=== PATIENT | male | born 1970 | race American Indian/Alaskan Native ===

== ENCOUNTER 2018-02-24 05:07 | Emergency (ER) | payer SELFPAY ==
--- NOTE | 2018-02-24 07:43 | Emergency Department Report ---
Upper Extremity - HPI Chief Complaint: Extremity Injury, Upper Stated Complaint: LT HAND THIRD FINGER LAC Time Seen by Provider: 02/24/18 07:15 Upper Extremity: Left Middle Finger (injured left middle finger at work yesterday.) Occurred When: 1 Day Mechanism: Hit with Object Symptoms: Yes Pain with Movement (left middle finger), Yes Swelling, Yes Bruising/Ecchymosis (left middle finger), Yes Laceration or Abrasion (left middle finger dorsal aspect), No Deformity, No Limited Range of Movement, No Numbness, No Weakness Other History: This is a 47-year-old male he reports that he injured his left middle finger on pipes yesterday at work. He is reporting pain in the 10 and throbbing. No medication taken recently. A Band-Aid over it and he has bruises and cuts on the finger last tetanus shot was in 2014. Denies any medical problem. Pain is achy and worse with movement and better with rest ED Review of Systems ROS: Stated complaint: LT HAND THIRD FINGER LAC Other details as noted in HPI Constitutional: denies: chills, fever Eyes: vision change Respiratory: denies: cough, shortness of breath, wheezing Cardiovascular: denies: chest pain, palpitations Gastrointestinal: denies: nausea, vomiting Musculoskeletal: arthralgia (left middle finger). denies: back pain Skin: other (abrasion to left middle finger and ecchymosis). denies: rash, lesions Neurological: denies: headache, weakness, numbness, paresthesias ED Past Medical Hx - Past Medical History Previous Medical History?: No - Surgical History Past Surgical History?: No - Family History Family history: hypertension - Social History Smoking Status: Current Every Day Smoker Substance Use Type: Alcohol - Medications Home Medications: Home Medications Medication Instructions Recorded Confirmed Last Taken Type Ibuprofen [Motrin] 600 mg PO Q8H PRN #12 tablet 02/24/18 Unknown Rx cephALEXin [Keflex] 500 mg PO Q8HR 7 Days #21 cap 02/24/18 Unknown Rx Upper Extremity Exam - Exam General: Vital signs noted. No distress. Alert and acting appropriately. This is a 47-year-old male Head and Torso: No HEENT Abnormality, No Neck Tenderness, No Chest/Lungs Abnormality, No Abdominal Tenderness, No Back Tenderness Shoulder Exam: Yes Normal Range of Motion in Shoulder, No Shoulder Tenderness, No Clavicle Tenderness, No Shoulder Deformity, No AC Joint Tenderness Arm Exam: No Arm/Humerus Tenderness, No Arm Deformity Elbow: Yes Normal Range of Motion in Elbow, No Elbow Tenderness, No Elbow Deformity Forearm: No Forearm Tenderness, No Forearm Deformity, No Pain with Pronation, No Pain with Supination Wrist: Yes Normal ROM in Wrist, No Wrist Tenderness, No Wrist Deformity, No Snuffbox Tenderness, No Pain with Axial Thumb Compression Hand: Yes Digit Tenderness (left middle finger bruise, with mild abrasion. Swelling), Yes Normal ROM in Digit(s), No Hand Tenderness, No Hand Deformity, No Digit(s) Deformity, No Tendon Dysfunction CMS Exam: Yes Broken Skin (small abrasion dorsal aspect assessment finger), Yes Normal Distal Pulses (No cce. + 2 pulses in all extremities, no neurovascular compromise), Yes Normal Capillary Refill (less than 2 seconds), Yes Normal Distal Sensation Hand L/R Back: 1 - Small abrasion to left middle finger. ED Course Vital Signs 02/24/18 08:17 Respiratory 18 Rate Vital Signs 02/24/18 02/24/18 08:17 08:26 Temperature 98.4 F Pulse Rate 88 Respiratory 18 20 Rate Blood Pressure 138/82 [Right] O2 Sat by Pulse 98 Oximetry - Reevaluation(s) Reevaluation #1: 02/24/18 08:26 given Motrin 800 mg by mouth for her left middle finger pain, area cleansed with saline and Neosporin ointment pacer site. Tetanus shot is up-to-date and metal finger splint placed after applying nonadhesive gauze dressing. ED Medical Decision Making - Radiology Data Radiology results: report reviewed X-ray of the left third digits reveal no acute fracture or dislocation. This was dictated by radiologist report reviewed by myself. See results below. Patient: MELCHOR MONSALVE MR#: [id number] : 1970 Acct:[id number] Age/Sex: 47 / M ADM Date: 02/24/18 Loc: ED Attending Dr: Ordering Physician: MAINOR ULLOA III, MD Date of Service: 02/24/18 Procedure(s): XR finger(s) 2+V LT Accession Number(s): [id number] cc: MAINOR ULLOA III, MD Fluoro Time In Minutes: FINAL REPORT EXAM: XRAY FINGER LEFT 3RD DIGIT HISTORY: left middle finger pain TECHNIQUE: Three views of the left middle finger were submitted. FINDINGS: There is no evidence of fracture or dislocation. The soft tissues are unremarkable. IMPRESSION: Within normal limits. Transcribed By: RB Dictated By: VALENTIN ZAMAN MD Electronically Authenticated By: VALENTIN ZAMAN MD Signed Date/Time: 02/24/18544 DD/ 4 TD/TT: 02/24/18544 - Medical Decision Making This is a 47-year-old male here report that he injured his left middle finger yesterday at work. Left middle finger: Soft tissue swelling without any fracture or dislocation. This is dictated by radiologist report reviewed by myself. Assessment/plan 1: Contusion and abrasion of left middle finger secondary to injury.-Sheet given Motrin 800 mg by mouth. Middle finger cleansed with normal saline and Neosporin ointment placed followed by sterile gauze dressing and metal finger splint placed. I discussed the patient that he needs to follow up with orthopedic doctor and keep affected area clean and dry. I gave him a cervical resolve then told them that he will need to keep splint on until he seen by orthopedic doctor. I also told him to take Keflex for abrasion to finger to prevent infection. Vital signs are stable is appropriate for discharge home with prescription for Keflex and Motrin - Differential Diagnosis FX VS contusion, dislocation, musculoskeletal pain Critical care attestation.: If time is entered above; I have spent that time in minutes in the direct care of this critically ill patient, excluding procedure time. ED Disposition Clinical Impression: Contusion of left middle finger Qualifiers: Encounter type: initial encounter Damage to nail status: without damage Qualified Code(s): S60.032A - Contusion of left middle finger without damage to nail, initial encounter Abrasion of left middle finger Qualifiers: Encounter type: initial encounter Qualified Code(s): S60.413A - Abrasion of left middle finger, initial encounter Disposition: TO HOME OR SELFCARE Is pt being admited?: No Does the pt Need Aspirin: No Condition: Stable Instructions: Contusion in Adults (ED), Abrasion (ED), RICE Therapy (ED) Additional Instructions: Please keep affected ear clean and dry Finger splint on until he is seen by orthopedic doctor Take Antibiotic as prescribed See discharge instructions and Rice therapy Prescriptions: cephALEXin [Keflex] 500 mg PO Q8HR 7 Days #21 cap Ibuprofen [Motrin] 600 mg PO Q8H PRN #12 tablet PRN Reason: Pain Referrals: PRIMARY MD PAT [Primary Care Provider] - 02/26/18 VALENTIN BEE MD [Staff Physician] - 02/26/18 Forms: Work/School Release Form(ED)
[2018-02-24] MEDS ORDERED: TRIPLE ANTIBIOTIC TP ONE (07:56)
[2018-02-24] MEDS ORDERED: MOTRIN PO ONE (07:57)
[2018-02-24] MEDS ORDERED: BOOSTRIX IM ONE (07:57)
[2018-02-24 08:27] VITALS: BP 138/82
--- NOTE | 2018-02-24 10:29 | XRay Report ---
FINAL REPORT EXAM: XRAY FINGER LEFT 3RD DIGIT HISTORY: left middle finger pain TECHNIQUE: Three views of the left middle finger were submitted. FINDINGS: There is no evidence of fracture or dislocation. The soft tissues are unremarkable. IMPRESSION: Within normal limits.
== END 2018-02-24 08:43 | disposition home or self-care (01) ==
LOC: ED 05:07
DX: S60.032A Contusion of left middle finger without damage to nail, initial encounter (principal); F17.200 Nicotine dependence, unspecified, uncomplicated; X58.XXXA Exposure to other specified factors, initial encounter; Y93.89 Activity, other specified; Y99.0 Civilian activity done for income or pay; Y92.69 Other specified industrial and construction area as the place of occurrence of the external cause
CPT/HCPCS: 90715; A6250